=== PATIENT | female | born 1960 | race Caucasian/White ===

== ENCOUNTER 2017-09-01 17:30 | Emergency (ER) | payer SELFPAY ==
[2017-09-01] MEDS ORDERED: KETOROLAC 30 MG/ML INJ. ×2 (18:08)
[2017-09-01] MEDS ORDERED: KETOROLAC 60 MG/2 ML INJ. ×2 (18:13)
[2017-09-01] MEDS: KETOROLAC 60 MG/2 ML INJ. IM ×2 (18:15)
== END 2017-09-01 18:51 | disposition home or self-care (01) ==
LOC: ER 17:30
DX: M25.562 Pain in left knee (principal); G89.29 Other chronic pain
CPT/HCPCS: 29505; 73562; 96372; 99284; J1885